=== PATIENT | female | born 1990 | race Caucasian/White ===

== ENCOUNTER → 2017-08-03 | Outpatient (REF) | payer OTHER ==
[~2017-08-03] MED LIST: IBUP-1022 PO; PRENTAB20 PO; TYLE325T5 PO
== END ==
LOC: M LAB REF 15:20
PROVIDERS: ATTEND Physician Assistant
DX: J02.9 Acute pharyngitis, unspecified (principal)

== ENCOUNTER 2018-01-16 10:14 | Emergency (ER) | payer OTHER ==
[2018-01-16 12:39] LABS: KETONE, URINE AUTO RFX 2+ mg/dL (NEGATIVE); MUCUS, URINE RFX SMALL (NEGATIVE); NITRITE, URINE AUTO RFX NEGATIVE (NEGATIVE); RBC, URINE AUTO RFX 4 /HPF (0-3); SPECIFIC GRAVITY UR AUTO RFX 1.027 (1.002-1.035); SQUAM EPITHELIAL CELL UR AURFX 3 /HPF (0-6); WBC, URINE AUTO RFX 7 /HPF (0-3)
[2018-01-16 12:40] LABS: LEUKOCYTE ESTERASE UR AUTO RFX TRACE (NEGATIVE)
[2018-01-16 12:41] LABS: BASO # 0.1 10^3/uL (0.0-0.2); BASO % 1.1 % (0.0-1.0); EOS % 0.9 % (0.0-3.0); HEMATOCRIT 42.5 % (36.0-47.0); HEMOGLOBIN 14.3 g/dl (12.0-16.0); IMMATURE GRANULOCYTE % 0.2 % (0-3.0); LYMPH % 44.3 % (24.0-44.0); MEAN CORPUSCULAR HEMOGLOBIN 28.9 pg (27.0-33.0); MEAN CORPUSCULAR HGB CONC 33.6 g/dl (32.0-36.5); MEAN CORPUSCULAR VOLUME 85.9 fl (80.0-96.0); MONO # 0.6 10^3/uL (0.0-0.8); MONO % 12.8 % (0.0-5.0); NEUTROPHILS # 1.9 10^3/uL (1.8-7.7); NEUTROPHILS % 40.7 % (36.0-66.0); PLATELET COUNT, AUTOMATED 311 10^3/uL (150-450); RED BLOOD COUNT 4.95 10^6/uL (4.00-5.40); RED CELL DISTRIBUTION WIDTH 13.2 % (11.5-14.5); WHITE BLOOD COUNT 4.6 10^3/uL (4.0-10.0)
[2018-01-16] MEDS: ONDANSETRON 4MG/2ML VIAL (J2405) IV (13:45)
[2018-01-16] MEDS: MORPHINE 4 MG/ML 1ML VIAL (J2270) IV (13:45)
[2018-01-16] MEDS: NS 1,000 ML IV (13:45)
[2018-01-16] MEDS: diphenhydrAMINE INJ 50MG/ML VIAL (J1200) IV (13:51)
[2018-01-16 14:12] LABS: ALBUMIN 3.2 GM/DL (3.2-5.2); ALBUMIN/GLOBULIN RATIO 0.78 (1.00-1.93); ALKALINE PHOSPHATASE 66 U/L (45-117); ALT/SGPT 13 U/L (12-78); ANION GAP 12 MEQ/L (8-16); AST/SGOT 23 U/L (7-37); BILIRUBIN,DIRECT < 0.1 MG/DL (0.0-0.2); BILIRUBIN,TOTAL 0.3 MG/DL (0.2-1.0); BLOOD UREA NITROGEN 14 MG/DL (7-18); CALCIUM LEVEL 8.7 MG/DL (8.5-10.1); CARBON DIOXIDE LEVEL 20 MEQ/L (21-32); CHLORIDE LEVEL 106 MEQ/L (98-107); CREATININE FOR GFR 0.61 MG/DL (0.55-1.30); GLOMERULAR FILTRATION RATE > 60.0 (>60); GLUCOSE, FASTING 53 MG/DL (70-100); LIPASE 74 U/L (73-393); POTASSIUM SERUM 4.5 MEQ/L (3.5-5.1); SODIUM LEVEL 138 MEQ/L (136-145); TOTAL PROTEIN 7.3 GM/DL (6.4-8.2)
[2018-01-16] MEDS ORDERED: ISOVUE-370 76% 100ML VIAL (Q9967) As Ordered (14:15)
[2018-01-16] MEDS: methylPREDNISolone INJ 125 MG/2 ML VIAL (J2930) IV (15:27)
== END 2018-01-16 15:58 | disposition home or self-care (01) ==
LOC: M ED 10:14
DX: K50.80 Crohn's disease of both small and large intestine without complications (principal); T83.32XA Displacement of intrauterine contraceptive device, initial encounter; Z87.891 Personal history of nicotine dependence; Z88.5 Allergy status to narcotic agent
CPT/HCPCS: J2270

== ENCOUNTER 2018-02-19 08:48 | Day surgery (SDC) | payer OTHER ==
[2018-02-19] MEDS: NS 1,000 ML IV (09:04)
[2018-02-19] MEDS ORDERED: PROPOFOL 200 MG/20 ML VIAL As Ordered (09:06)
== END 2018-02-19 10:25 | disposition home or self-care (01) ==
LOC: M OPP 08:48
DX: R93.3 Abnormal findings on diagnostic imaging of other parts of digestive tract (principal); K50.10 Crohn's disease of large intestine without complications; K63.89 Other specified diseases of intestine; K63.3 Ulcer of intestine; K64.8 Other hemorrhoids; Z88.5 Allergy status to narcotic agent; Z80.9 Family history of malignant neoplasm, unspecified
CPT/HCPCS: 45380

== ENCOUNTER 2018-03-14 11:32 | Day surgery (SDC) | payer OTHER ==
[~2018-03-14 11:32] MED LIST changes: -IBUP-1022 PO; +LIDOCAINE 2% INJ 100 MG/5 ML SDV (FOR ANES.) As Ordered; +MIDAZOLAM INJ 2 MG/2 ML VIAL (J2250) As Ordered; +ONDANSETRON 4MG/2ML VIAL (J2405) As Ordered; -PRENTAB20 PO; +PROPOFOL 200 MG/20 ML VIAL As Ordered; +ROCURONIUM BROMIDE 50 MG/5 ML VIAL As Ordered; +SUCCINYLCHOLINE 100 MG/5 ML SYRINGE (J0330) As Ordered; -TYLE325T5 PO; +dexameTHASONE 4 MG/ML 1ML VIAL (J1100) As Ordered; +fentaNYL 100 MCG/2 ML INJECTION (J3010) As Ordered
[2018-03-14] MEDS: LR 1,000 ML IV (11:53)
[2018-03-14 12:03] LABS: HEMATOCRIT 41.3 % (36.0-47.0); HEMOGLOBIN 13.6 g/dl (12.0-15.5)
[2018-03-14 12:09] LABS: CONTROL LINE UCG INT CTR LINE PRESENT; URINE PREG TEST NEGATIVE (NEGATIVE)
[2018-03-14] MEDS ORDERED: dexameTHASONE 4 MG/ML 1ML VIAL (J1100) As Ordered (12:24)
[2018-03-14] MEDS ORDERED: diphenhydrAMINE INJ 50MG/ML VIAL (J1200) As Ordered (12:25)
[2018-03-14] MEDS ORDERED: KETOROLAC 60 MG/2 ML VIAL (J1885) As Ordered (12:54)
[2018-03-14] MEDS: BUPIVACAINE HCL 0.25% 30 ML VIAL As Ordered (12:59)
[2018-03-14] MEDS ORDERED: ONDANSETRON 4MG/2ML VIAL (J2405) IV (13:45)
[2018-03-14] MEDS ORDERED: PERCOCET 5MG/325MG TAB PO ×2 (13:45)
[2018-03-14] MEDS ORDERED: LR 1,000 ML IV ×2 (13:45)
[2018-03-14] MEDS: fentaNYL 100 MCG/2 ML INJECTION (J3010) IV ×4 (14:00→14:15)
[2018-03-14] MEDS: PERCOCET 5MG/325MG TAB PO (14:05)
== END 2018-03-14 15:05 | disposition home or self-care (01) ==
LOC: M SDC 11:32
DX: Z30.2 Encounter for sterilization (principal); Z97.5 Presence of (intrauterine) contraceptive device; K50.90 Crohn's disease, unspecified, without complications; Z88.5 Allergy status to narcotic agent; Z79.899 Other long term (current) drug therapy
CPT/HCPCS: 58671

== ENCOUNTER → 2018-08-02 | Outpatient (CLI) | payer OTHER ==
[2018-08-02 17:47] LABS: BASO % 0.5 % (0.0-1.0); EOS # 0.2 10^3/uL (0.0-0.50); EOS % 2.7 % (0.0-3.0); HEMATOCRIT 42.3 % (36.0-47.0); IMMATURE GRANULOCYTE % 0.3 % (0-3.0); LYMPH # 3.4 10^3/uL (1.5-6.5); LYMPH % 38.3 % (24.0-44.0); MEAN CORPUSCULAR HGB CONC 33.1 g/dl (32.0-36.5); MEAN CORPUSCULAR VOLUME 90.6 fl (80.0-96.0); MONO # 0.6 10^3/uL (0.0-0.8); MONO % 6.5 % (0.0-5.0); NEUTROPHILS # 4.5 10^3/uL (1.8-7.7); NEUTROPHILS % 51.7 % (36.0-66.0); PLATELET COUNT, AUTOMATED 280 10^3/uL (150-450); RED BLOOD COUNT 4.67 10^6/uL (4.00-5.40); RED CELL DISTRIBUTION WIDTH 13.3 % (11.5-14.5); WHITE BLOOD COUNT 8.8 10^3/uL (4.0-10.0)
[2018-08-02 18:02] LABS: ALBUMIN 3.9 GM/DL (3.2-5.2); ALBUMIN/GLOBULIN RATIO 1.26 (1.00-1.93); ALKALINE PHOSPHATASE 73 U/L (45-117); ALT/SGPT 17 U/L (12-78); AST/SGOT 12 U/L (7-37); BILIRUBIN,DIRECT < 0.1 MG/DL (0.0-0.2); BILIRUBIN,TOTAL 0.2 MG/DL (0.2-1.0); C REACTIVE PROTEIN QUANTITATIV < 0.30 MG/DL (0.00-0.30)
[2018-08-02 19:32] LABS: ERYTHROCYTE SEDIMENTATION RATE 6 mm/hr (0-20)
[2018-08-03 11:25] LABS: HEPATITIS B SURFACE ANTIBODY NEGATIVE (POSITIVE)
[2018-08-03 11:37] LABS: HEPATITIS B SURFACE ANTIGEN NEGATIVE (NEGATIVE)
[2018-08-07 00:21] LABS: ANCA-ATYPICAL <1:20 titer (Neg:<1:20); ANTI-SACCHAROMYCES CEREV. IgA 131.6 Units (0.0-24.9); ANTI-SACCHAROMYCES CEREV. IgG 47.5 Units (0.0-24.9); CYTOPLASMIC NEUTROP AB ANCA-C <1:20 titer (Neg:<1:20); HEPATITIS B CORE ANTIBODY IGG Negative (Negative); PERINUCLEAR AB ANCA-P <1:20 titer (Neg:<1:20)
[2018-08-09 08:33] LABS: IBDSER1 SEE SEPARATE REPORT
[2018-08-17 08:40] LABS: CROHN1 SEE SEPARATE REPORT
== END ==
LOC: M WUC 12:20
DX: K50.80 Crohn's disease of both small and large intestine without complications (principal)
CPT/HCPCS: 80076

== ENCOUNTER → 2018-09-01 | Outpatient (CLI) | payer OTHER ==
[2018-09-01 18:04] LABS: BASO # 0.1 10^3/uL (0.0-0.2); BASO % 0.4 % (0.0-1.0); EOS # 0.1 10^3/uL (0.0-0.50); EOS % 1.1 % (0.0-3.0); HEMATOCRIT 42.1 % (36.0-47.0); HEMOGLOBIN 13.8 g/dl (12.0-15.5); IMMATURE GRANULOCYTE % 1.1 % (0-3.0); LYMPH # 2.1 10^3/uL (1.5-6.5); MEAN CORPUSCULAR HEMOGLOBIN 30.5 pg (27.0-33.0); MEAN CORPUSCULAR HGB CONC 32.8 g/dl (32.0-36.5); MEAN CORPUSCULAR VOLUME 93.1 fl (80.0-96.0); MONO # 0.6 10^3/uL (0.0-0.8); MONO % 4.4 % (0.0-5.0); NEUTROPHILS # 10.1 10^3/uL (1.8-7.7); PLATELET COUNT, AUTOMATED 310 10^3/uL (150-450); RED BLOOD COUNT 4.52 10^6/uL (4.00-5.40); RED CELL DISTRIBUTION WIDTH 13.2 % (11.5-14.5); WHITE BLOOD COUNT 13.1 10^3/uL (4.0-10.0)
[2018-09-01 18:13] LABS: ALBUMIN 3.8 GM/DL (3.2-5.2); ALBUMIN/GLOBULIN RATIO 1.23 (1.00-1.93); ALKALINE PHOSPHATASE 57 U/L (45-117); ALT/SGPT 22 U/L (12-78); AST/SGOT 12 U/L (7-37); BILIRUBIN,DIRECT 0.1 MG/DL (0.0-0.2); BILIRUBIN,TOTAL 0.5 MG/DL (0.2-1.0); BLOOD UREA NITROGEN 13 MG/DL (7-18); CREATININE FOR GFR 0.75 MG/DL (0.55-1.30); GLOMERULAR FILTRATION RATE > 60.0 (>60); TOTAL PROTEIN 6.9 GM/DL (6.4-8.2)
== END ==
LOC: M WUC 10:06
DX: K63.3 Ulcer of intestine (principal); K50.10 Crohn's disease of large intestine without complications
CPT/HCPCS: 82565

== ENCOUNTER → 2018-11-15 | Outpatient (CLI) | payer OTHER ==
[~2018-11-15] MED LIST changes: +CIPR-249 PO; +IBUP-1022 PO; -LIDOCAINE 2% INJ 100 MG/5 ML SDV (FOR ANES.) As Ordered; -MIDAZOLAM INJ 2 MG/2 ML VIAL (J2250) As Ordered; -ONDANSETRON 4MG/2ML VIAL (J2405) As Ordered; +OXYC1TAB23 PO; +PENT500C PO; +PRED20TA PO; +PRENTAB20 PO; -PROPOFOL 200 MG/20 ML VIAL As Ordered; -ROCURONIUM BROMIDE 50 MG/5 ML VIAL As Ordered; -SUCCINYLCHOLINE 100 MG/5 ML SYRINGE (J0330) As Ordered; +TYLE325T5 PO; +ZOFR4TAB14 PO; -dexameTHASONE 4 MG/ML 1ML VIAL (J1100) As Ordered; -fentaNYL 100 MCG/2 ML INJECTION (J3010) As Ordered
[2018-11-15 20:31] LABS: BASO % 0.5 % (0.0-1.0); EOS # 0.3 10^3/uL (0.0-0.50); EOS % 3.3 % (0.0-3.0); HEMATOCRIT 40.7 % (36.0-47.0); HEMOGLOBIN 13.8 g/dl (12.0-15.5); LYMPH # 2.5 10^3/uL (1.5-6.5); LYMPH % 32.6 % (24.0-44.0); MEAN CORPUSCULAR HGB CONC 33.9 g/dl (32.0-36.5); MEAN CORPUSCULAR VOLUME 94.4 fl (80.0-96.0); MONO # 0.5 10^3/uL (0.0-0.8); MONO % 6.5 % (0.0-5.0); NEUTROPHILS # 4.3 10^3/uL (1.8-7.7); NEUTROPHILS % 56.7 % (36.0-66.0); PLATELET COUNT, AUTOMATED 297 10^3/uL (150-450); RED BLOOD COUNT 4.31 10^6/uL (4.00-5.40); WHITE BLOOD COUNT 7.6 10^3/uL (4.0-10.0)
[2018-11-15 20:38] LABS: ALBUMIN 3.7 GM/DL (3.2-5.2); ALT/SGPT 19 U/L (12-78); BILIRUBIN,DIRECT < 0.1 MG/DL (0.0-0.2); BILIRUBIN,TOTAL 0.2 MG/DL (0.2-1.0); BLOOD UREA NITROGEN 12 MG/DL (7-18); CREATININE FOR GFR 0.83 MG/DL (0.55-1.30); GLOMERULAR FILTRATION RATE > 60.0 (>60); TOTAL PROTEIN 6.9 GM/DL (6.4-8.2)
[2018-11-21 07:52] LABS: 6-TGN 116 (230-400)
[2018-11-21 07:53] LABS: 6MMPN <802 (<5700)
== END ==
LOC: M LRY 16:16
PROVIDERS: ATTEND Internal Medicine Gastroenterology
DX: K63.3 Ulcer of intestine (principal); K50.10 Crohn's disease of large intestine without complications

== ENCOUNTER → 2018-12-20 | Outpatient (CLI) | payer OTHER ==
[2018-12-20 20:33] LABS: BASO % 0.6 % (0.0-1.0); EOS # 0.2 10^3/uL (0.0-0.50); EOS % 2.4 % (0.0-3.0); HEMATOCRIT 41.6 % (36.0-47.0); HEMOGLOBIN 13.8 g/dl (12.0-15.5); LYMPH # 2.3 10^3/uL (1.5-6.5); MEAN CORPUSCULAR HEMOGLOBIN 31.9 pg (27.0-33.0); MEAN CORPUSCULAR HGB CONC 33.2 g/dl (32.0-36.5); MEAN CORPUSCULAR VOLUME 96.1 fl (80.0-96.0); MONO # 0.4 10^3/uL (0.0-0.8); MONO % 5.1 % (0.0-5.0); NEUTROPHILS # 4.1 10^3/uL (1.8-7.7); NEUTROPHILS % 58.6 % (36.0-66.0); PLATELET COUNT, AUTOMATED 285 10^3/uL (150-450); RED BLOOD COUNT 4.33 10^6/uL (4.00-5.40)
[2018-12-20 21:07] LABS: ALBUMIN 4.1 GM/DL (3.2-5.2); BILIRUBIN,DIRECT 0.1 MG/DL (0.0-0.2); BILIRUBIN,TOTAL 0.3 MG/DL (0.2-1.0); TOTAL PROTEIN 7.3 GM/DL (6.4-8.2)
[2018-12-20 21:20] LABS: ERYTHROCYTE SEDIMENTATION RATE 6 mm/hr (0-20)
[2018-12-26 09:27] LABS: 6-TGN 246 (230-400)
[2018-12-26 09:28] LABS: 6MMPN 875 (<5700)
== END ==
LOC: M LRY 16:08
PROVIDERS: ATTEND Internal Medicine Gastroenterology
DX: K63.3 Ulcer of intestine (principal)

== ENCOUNTER → 2019-02-20 | Outpatient (CLI) | payer OTHER ==
[2019-02-20 21:34] LABS: ALT/SGPT 19 U/L (12-78); BILIRUBIN,DIRECT < 0.1 MG/DL (0.0-0.2); BILIRUBIN,TOTAL 0.3 MG/DL (0.2-1.0)
[2019-02-20 21:35] LABS: BASO # 0.1 10^3/uL (0.0-0.2); BASO % 0.7 % (0.0-1.0); EOS # 0.3 10^3/uL (0.0-0.50); EOS % 3.6 % (0.0-3.0); HEMATOCRIT 41.6 % (36.0-47.0); HEMOGLOBIN 13.6 g/dl (12.0-15.5); LYMPH # 2.9 10^3/uL (1.5-6.5); LYMPH % 41.9 % (24.0-44.0); MEAN CORPUSCULAR HEMOGLOBIN 31.2 pg (27.0-33.0); MEAN CORPUSCULAR HGB CONC 32.7 g/dl (32.0-36.5); MEAN CORPUSCULAR VOLUME 95.4 fl (80.0-96.0); MONO # 0.5 10^3/uL (0.0-0.8); MONO % 6.5 % (0.0-5.0); NEUTROPHILS # 3.2 10^3/uL (1.8-7.7); PLATELET COUNT, AUTOMATED 280 10^3/uL (150-450); RED BLOOD COUNT 4.36 10^6/uL (4.00-5.40); WHITE BLOOD COUNT 6.9 10^3/uL (4.0-10.0)
[2019-02-20 22:27] LABS: ERYTHROCYTE SEDIMENTATION RATE 5 mm/hr (0-20)
== END ==
LOC: M LRY 16:59
PROVIDERS: ATTEND Internal Medicine Gastroenterology
DX: K50.80 Crohn's disease of both small and large intestine without complications (principal)

== ENCOUNTER 2019-04-01 06:39 | Day surgery (SDC) | payer OTHER ==
[~2019-04-01] VITALS: Ht 170.2 cm; Wt 78.9 kg
[~2019-04-01 06:39] MED LIST changes: +AZAT50TA2 PO; +NS 1,000 ML IV ONE
[2019-04-01] MEDS ORDERED: PROPOFOL 200 MG/20 ML VIAL As Ordered ONE (07:09)
[2019-04-01] MEDS ORDERED: LIDOCAINE 2% INJ 100 MG/5 ML SDV (FOR ANES.) As Ordered ONE (07:10)
--- NOTE | 2019-04-01 08:05 | ROOR ---
Patient Name: Arianna Gaston Procedure Date: 04/01/2019 7:34 AM Date of : 1990 Age: 28 Room: [facility] Gender: Female Note Status: Finalized Procedure: Colonoscopy Indications: High risk colon cancer surveillance: Crohn's small and large intestine, Incidental - Disease activity assessment of Crohn's disease of the small bowel and colon Providers: Jason Moreland MD Referring MD: 1. No Referring Physician 1. No Referring Physician, Admin. Requesting Provider: Medicines: Monitored Anesthesia Care Complications: No immediate complications. Procedure: Pre-Anesthesia Assessment: - Prior to the procedure, a History and Physical was performed, and patient medications and allergies were reviewed. The patient is competent. The risks and benefits of the procedure and the sedation options and risks were discussed with the patient. All questions were answered and informed consent was obtained. Patient identification and proposed procedure were verified by the physician, the nurse and the anesthesiologist in the procedure room. Mental Status Examination: alert and oriented. Airway Examination: normal oropharyngeal airway and neck mobility. Respiratory Examination: clear to auscultation. CV Examination: normal. Prophylactic Antibiotics: The patient does not require prophylactic antibiotics. Prior Anticoagulants: The patient has taken no previous anticoagulant or antiplatelet agents. ASA Grade Assessment: II - A patient with mild systemic disease. After reviewing the risks and benefits, the patient was deemed in satisfactory condition to undergo the procedure. The anesthesia plan was to use monitored anesthesia care (MAC). Immediately prior to administration of medications, the patient was re-assessed for adequacy to receive sedatives. The heart rate, respiratory rate, oxygen saturations, blood pressure, adequacy of pulmonary ventilation, and response to care were monitored throughout the procedure. The physical status of the patient was re-assessed after the procedure. The Colonoscope was introduced through the anus and advanced to the terminal ileum, with identification of the appendiceal orifice and IC valve. The colonoscopy was performed without difficulty. The patient tolerated the procedure well. The quality of the bowel preparation was good. The terminal ileum, ileocecal valve, appendiceal orifice, and rectum were photographed. Scope insertion time was 2 minutes. Scope withdrawal time was 8 minutes. The total duration of the procedure was 10 minutes. Findings: The perianal and digital rectal examinations were normal. Patchy inflammation, graded as Rutgeerts Score i1 (five or fewer aphthous lesions) and characterized by erosions and scarring was found in the terminal ileum. Biopsies were taken with a cold forceps for histology. Verification of patient identification for the specimen was done by the physician and nurse using the patient's name, date and medical record number. Estimated blood loss was minimal. Normal mucosa was found in the entire colon. Biopsies for histology were taken with a cold forceps from the right colon, left colon and rectosigmoid colon for evaluation of microscopic colitis. The retroflexed view of the distal rectum and anal verge was normal and showed no anal or rectal abnormalities. Impression: - Ileitis Biopsied. - Normal mucosa in the entire examined colon. Biopsied. Recommendation: - Patient has a contact number available for emergencies. The signs and symptoms of potential delayed complications were discussed with the patient. Return to normal activities tomorrow. Written discharge instructions were provided to the patient. - Resume previous diet. - Continue present medications. - Await pathology results. - Repeat colonoscopy in 10 years to assess disease activity and depending on clinical status. - Repeat colonoscopy at age 52 for screening purposes. - Return to primary care physician. Jason Moreland MD Jason Moreland MD 04/01/2019 8:05:22 AM Electronically signed by Jason Moreland MD Number of Addenda: 0 Note Initiated On: 04/01/2019 7:34 AM Estimated Blood Loss: Estimated blood loss: none.
[2019-04-01 08:21] VITALS: BP 127/93
== END 2019-04-01 08:22 | disposition home or self-care (01) ==
LOC: M OPP 06:39
PROVIDERS: ATTEND Internal Medicine Gastroenterology
DX: K50.80 Crohn's disease of both small and large intestine without complications (principal); K52.9 Noninfective gastroenteritis and colitis, unspecified

== ENCOUNTER → 2019-11-14 | Outpatient (CLI) | payer OTHER ==
[~2019-11-14] MED LIST changes: +METHACHOLINE KIT (J7674) INH ONE; -NS 1,000 ML IV ONE
--- NOTE | 2019-11-14 09:01 | PFTRPT ---
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 Review Status: Not Reviewed Pre-Bronch Post-Bronch Pred Actual %Pred Actual %Chng SPIROMETRY FVC (L) 4.03 4.46 110 4.26 -4 FEV1 (L) 3.43 3.59 104 3.42 -4 FEV1/FVC (%) 85 81 94 80 FEF 25% (L/sec) 5.98 6.74 112 6.14 -8 FEF 50% (L/sec) 4.59 4.36 94 3.87 -11 FEF 75% (L/sec) 1.97 1.49 75 1.12 -24 FEF 25-75% (L/sec) 3.67 3.48 94 2.92 -16 FEF Max (L/sec) 7.28 7.52 103 7.12 -5 FIVC (L) 4.10 3.46 -15 FIF 50% (L/sec) 4.30 3.39 78 1.71 -49 FIF Max (L/sec) 3.67 3.16 -13 Expiratory Time (sec) 6.58 6.77 2 Back Extrap Vol (L) 0.10 0.10 -5 Time To FEFmax (sec) 0.074 0.080 8
== END ==
LOC: M CARPUL 07:56
PROVIDERS: ATTEND Nurse Practitioner Adult Health
DX: R06.02 Shortness of breath (principal)
CPT/HCPCS: 94070; J7674

== ENCOUNTER → 2020-04-24 | Outpatient (CLI) | payer OTHER ==
[~2020-04-24] MED LIST changes: -METHACHOLINE KIT (J7674) INH ONE
[2020-04-24 14:07] LABS: BASO % 0.5 % (0.0-1.0); EOS # 0.2 10^3/uL (0.0-0.5); EOS % 3.7 % (0.0-3.0); HEMATOCRIT 41.4 % (36.0-47.0); HEMOGLOBIN 13.7 g/dl (12.0-15.5); LYMPH # 2.1 10^3/uL (1.5-5.0); LYMPH % 31.9 % (24.0-44.0); MEAN CORPUSCULAR HEMOGLOBIN 30.3 pg (27.0-33.0); MEAN CORPUSCULAR HGB CONC 33.1 g/dl (32.0-36.5); MEAN CORPUSCULAR VOLUME 91.6 fl (80.0-96.0); MONO # 0.4 10^3/uL (0.0-0.8); MONO % 6.6 % (0.0-5.0); NEUTROPHILS # 3.7 10^3/uL (1.5-8.5); PLATELET COUNT, AUTOMATED 290 10^3/uL (150-450); RED BLOOD COUNT 4.52 10^6/uL (4.00-5.40); WHITE BLOOD COUNT 6.5 10^3/uL (4.0-10.0)
[2020-04-24 14:08] LABS: ALBUMIN 3.8 GM/DL (3.2-5.2); ALT/SGPT 16 U/L (12-78); BILIRUBIN,DIRECT 0.1 MG/DL (0.0-0.2); BILIRUBIN,TOTAL 0.7 MG/DL (0.2-1.0); C REACTIVE PROTEIN QUANTITATIV < 0.30 MG/DL (0.00-0.30); TOTAL PROTEIN 7.2 GM/DL (6.4-8.2)
[2020-04-24 14:25] LABS: ERYTHROCYTE SEDIMENTATION RATE 8 mm/hr (0-20)
[2020-05-07 07:25] LABS: 6-TGN 28 (230-400); 6MMPN <261 (<5700)
== END ==
LOC: M LRY 09:07
PROVIDERS: ATTEND Internal Medicine Gastroenterology
DX: K50.80 Crohn's disease of both small and large intestine without complications (principal)

== ENCOUNTER → 2020-05-11 | Outpatient (CLI) | payer OTHER ==
[~2020-05-11] MED LIST changes: +ADVA115A INH; +CETI-24 PO; +E-Z-GAS II EFFERVESCENT PACKET (SODIUM BICARB./CITRIC ACID/SIMETHICONE) As Ordered ONE; +E-Z-HD 98% w/w 340GM SUSP BTL As Ordered ONE; +E-Z-PAQUE 96% w/w SUSP 176GM BTL As Ordered ONE; +VENTAER INH
--- NOTE | 2020-05-11 18:43 | REP ---
Upper GI Air Contrast with SBFT The procedure was performed by TRISTON Garcia, under the the direct supervision of Dr. Benoit. The images were reviewed with Dr. Benoit. The box car loader film shows no organomegaly or pathological masses. The intestinal gas pattern appears normal. There are bilateral tubal ligation bands in the pelvis. Liquid barium and gas producing crystals were given in the erect position as well as liquid barium in the prone position in order to perform a double contrast upper GI examination. The oral and pharyngeal stages of deglutition were unremarkable. Esophageal transport is efficient and there is no esophagitis, stricture, or mucosal ring noted. There is no hiatal hernia. Gastroesophageal reflux was not visualized during the exam. The stomach parker are normally outlined. The rugal folds are smooth and regular. There is no gastritis, neoplasm, or ulcer disease noted. The duodenal parker are normally outlined. The mucosal folds are smooth and regular. There is no duodenitis, peptic ulcer disease, or neoplasm noted. The visualized portion of the proximal small bowel appears normal in course and caliber. The barium column was followed through the small bowel to the level of the terminal ileum. Small bowel transit time was approximately 40 minutes. During fluoroscopy gentle palpation shows all loops are freely mobile and pliable. There are no fixed or angulated loops. The small bowel mucosal pattern is normal in course and caliber. There is no transition to set suggest a partial small-bowel obstruction. Spot filming of the terminal ileum shows it to be unremarkable. Impression: 1. Small bowel transit time of approximately 40 minutes, otherwise unremarkable upper GI and small-bowel follow-through. 0.9 minutes of fluoroscopy time was utilized for this procedure. Some fluoroscopic images are performed with last image hold technology. These images require no additional radiation. Reviewed by TRISTON Ponce 05/11/2020 05:22 P Electronically Signed by Chad Benoit MD 05/11/2020 06:34 P
== END ==
LOC: M RAD 07:38
PROVIDERS: ATTEND Internal Medicine Gastroenterology
DX: K50.80 Crohn's disease of both small and large intestine without complications (principal)

== ENCOUNTER 2020-07-06 13:43 | Outpatient (CLI) | payer OTHER ==
[~2020-07-06] VITALS: Ht 172.7 cm; Wt 83.4 kg
[~2020-07-06 13:43] MED LIST changes: -ADVA115A INH; -CETI-24 PO; -E-Z-GAS II EFFERVESCENT PACKET (SODIUM BICARB./CITRIC ACID/SIMETHICONE) As Ordered ONE; -E-Z-HD 98% w/w 340GM SUSP BTL As Ordered ONE; -E-Z-PAQUE 96% w/w SUSP 176GM BTL As Ordered ONE; -VENTAER INH
[2020-07-06 13:59] VITALS: BP 130/80
[2020-07-06] MEDS ORDERED: VEDOLIZUMAB 300 MG in NS 250 ML IV ONE (14:00)
[2020-07-06] MEDS ORDERED: CETI-24 PO (14:23)
[2020-07-06 15:05] VITALS: BP 134/77
== END 2020-07-06 15:05 | disposition home or self-care (01) ==
LOC: M INFU 13:43
PROVIDERS: ATTEND Internal Medicine Gastroenterology
DX: K50.90 Crohn's disease, unspecified, without complications (principal)
CPT/HCPCS: 96365; J3380

== ENCOUNTER 2020-07-20 13:44 | Outpatient (CLI) | payer OTHER ==
[~2020-07-20] VITALS: Ht 172.7 cm; Wt 83.4 kg
[~2020-07-20 13:44] MED LIST changes: +CETI-24 PO
[2020-07-20 13:45] VITALS: BP 127/75
[2020-07-20] MEDS ORDERED: VEDOLIZUMAB 300 MG in NS 250 ML IV ONE (14:00)
[2020-07-20] MEDS ORDERED: ADVA115A INH (14:30)
[2020-07-20] MEDS ORDERED: VENTAER INH (14:31)
[2020-07-20 14:50] VITALS: BP 110/74
== END 2020-07-20 14:50 | disposition home or self-care (01) ==
LOC: M INFU 13:44
PROVIDERS: ATTEND Internal Medicine Gastroenterology
DX: K50.90 Crohn's disease, unspecified, without complications (principal)
CPT/HCPCS: 96365; J3380

== ENCOUNTER 2020-08-17 13:56 | Outpatient (CLI) | payer OTHER ==
[~2020-08-17] VITALS: Ht 162.6 cm; Wt 80.5 kg
[~2020-08-17 13:56] MED LIST changes: +ADVA115A INH; +VENTAER INH
[2020-08-17] MEDS ORDERED: VEDOLIZUMAB 300 MG in NS 250 ML IV ONE (14:00)
[2020-08-17 14:10] VITALS: BP 134/63
[2020-08-17 15:24] VITALS: BP 122/83
== END 2020-08-17 15:25 | disposition home or self-care (01) ==
LOC: M INFU 13:56
PROVIDERS: ATTEND Internal Medicine Gastroenterology
DX: K50.90 Crohn's disease, unspecified, without complications (principal)
CPT/HCPCS: 96365; J3380

== ENCOUNTER 2020-10-12 13:48 | Outpatient (CLI) | payer OTHER ==
[~2020-10-12] VITALS: Ht 193 cm; Wt 80.5 kg
[2020-10-12] MEDS ORDERED: VEDOLIZUMAB 300 MG in NS 250 ML IV ONE (14:00)
[2020-10-12 14:01] VITALS: BP 140/87
[2020-10-12 15:16] VITALS: BP 114/70
== END 2020-10-12 15:18 | disposition home or self-care (01) ==
LOC: M INFU 13:48
PROVIDERS: ATTEND Internal Medicine Gastroenterology
DX: K50.90 Crohn's disease, unspecified, without complications (principal)
CPT/HCPCS: 96365; J3380

== ENCOUNTER 2020-11-04 23:53 | Emergency (ER) | payer OTHER ==
[~2020-11-04] VITALS: Ht 170.2 cm; Wt 81.4 kg
--- OUTSIDE RECORDS SUMMARY | 2020-11-05 00:04 | CCD ---
Author Author [facility] Organization [facility] Address Unknown Phone Unavailable Care Team Providers Care Transfer Agent Name Role Phone CYDNEY PEDROZA MD Unavailable Unavailable CYDNEY PEDROZA MD Unavailable Unavailable CYDNEY PEDROZA MD Unavailable Unavailable CYDNEY PEDROZA MD Unavailable Unavailable CYDNEY PEDROZA MD Unavailable Unavailable CYDNEY PEDROZA MD Unavailable Unavailable CYDNEY PEDROZA MD Unavailable Unavailable CYDNEY PEDROZA MD Unavailable Unavailable CYDNEY PEDROZA MD Unavailable Unavailable CYDNEY PEDROZA MD Unavailable Unavailable CYDNEY PEDROZA MD Unavailable Unavailable CYDNEY PEDROZA MD Unavailable Unavailable CYDNEY PEDROZA MD Unavailable Unavailable CYDNEY PEDROZA MD Unavailable Unavailable CYDNEY PEDROZA MD Unavailable Unavailable CYDNEY PEDROZA MD Unavailable Unavailable CYDNEY PEDROZA MD Unavailable Unavailable CYDNEY PDEROZA MD Unavailable Unavailable CYDNEY PEDROZA MD Unavailable Unavailable CYDNEY PEDROZA MD Unavailable Unavailable CYDNEY PEDROZA MD Unavailable Unavailable CYDNEY PEDROZA MD Unavailable Unavailable CYDNEY PEDROZA MD Unavailable Unavailable CYDNEY PEDROZA MD Unavailable Unavailable CYDNEY PEDROZA MD Unavailable Unavailable CYDNEY PEDROZA MD Unavailable Unavailable CYDNEY PEDROZA MD Unavailable Unavailable CYDNEY PEDROZA MD Unavailable Unavailable CYDNEY PEDROZA MD Unavailable Unavailable CYDNEY PEDROZA MD Unavailable Unavailable CYDNEY PEDROZA MD Unavailable Unavailable CYDNEY PEDROZA MD Unavailable Unavailable CYDNEY PEDROZA MD Unavailable Unavailable CYDNEY PEDROZA MD Unavailable Unavailable CYDNEY PEDROZA MD Unavailable Unavailable CYDNEY PEDROZA MD Unavailable Unavailable CYDNEY PEDROZA MD Unavailable Unavailable CYDNEY PEDROZA MD Unavailable Unavailable CYDNEY PEDROZA MD Unavailable Unavailable CYDNEY PEDROZA MD Unavailable Unavailable Zackery, Radha Sasha ANP-BC Unavailable Unavailable Zackery, Radha Sasha ANP-BC Unavailable Unavailable Zackery, Radha Sasha ANP-BC Unavailable Unavailable Zackery, Radha Sasha ANP-BC Unavailable Unavailable Zackery, Radha Sasha ANP-BC Unavailable Unavailable Zackery, Radha Sasha ANP-BC Unavailable Unavailable Zackery, Radha Sasha ANP-BC Unavailable Unavailable Zackery, Radha Sasha ANP-BC Unavailable Unavailable Zackery, Radha Sasha ANP-BC Unavailable Unavailable Zackery, Radha Sasha ANP-BC Unavailable Unavailable Zackery, Radha Sasha ANP-BC Unavailable Unavailable Zackery, Radha Sasha ANP-BC Unavailable Unavailable Zackery, Radha Sasha ANP-BC Unavailable Unavailable Zackery, Radha Sasha ANP-BC Unavailable Unavailable Zackery, Radha Sasha ANP-BC Unavailable Unavailable Zackery, Radha Sasha ANP-BC Unavailable Unavailable Zackery, Radha Sasha ANP-BC Unavailable Unavailable Zackery, Radha Sasha ANP-BC Unavailable Unavailable Zackery, Radha Sasha ANP-BC Unavailable Unavailable Zackery, Radha Sasha ANP-BC Unavailable Unavailable Zackery, Radha Sasha ANP-BC Unavailable Unavailable Zackery, Radha Sasha ANP-BC Unavailable Unavailable Zackery, Radha Sasha ANP-BC Unavailable Unavailable Zackery, Radha Sasha ANP-BC Unavailable Unavailable Zackery, Radha Sasha ANP-BC Unavailable Unavailable Zackery, Radha Sasha ANP-BC Unavailable Unavailable Zackery, Radha Sasha ANP-BC Unavailable Unavailable Zackery, Radha Sasha ANP-BC Unavailable Unavailable Zackery, Radha Sasha ANP-BC Unavailable Unavailable Zackery, Radha Sasha ANP-BC Unavailable Unavailable Zackery, Radha Sasha ANP-BC Unavailable Unavailable Zackery, Radha Sasha ANP-BC Unavailable Unavailable Zackery, Rdaha Sasha ANP-BC Unavailable Unavailable Zackery, Radha Sasha ANP-BC Unavailable Unavailable Zackery, Radha Sasha ANP-BC Unavailable Unavailable Zackery, Radha Sasha ANP-BC Unavailable Unavailable Zackery, Radha Sasha ANP-BC Unavailable Unavailable Zackery, Radha Sasha ANP-BC Unavailable Unavailable Zackery, Radha Sasha ANP-BC Unavailable Unavailable Zackery, Radha Sasha ANP-BC Unavailable Unavailable Zackery, Radha Sasha ANP-BC Unavailable Unavailable Zackery, Radha Sasha ANP-BC Unavailable Unavailable Zackery, Radha Sasha ANP-BC Unavailable Unavailable Zackery, Radha Sasha ANP-BC Unavailable Unavailable Zackery, Radha Sasha ANP-BC Unavailable Unavailable Zackery, Radha Sasha ANP-BC Unavailable Unavailable Zackery, Radha Sasha ANP-BC Unavailable Unavailable Zackery, Radha Sasha ANP-BC Unavailable Unavailable Zackery, Radha Sasha ANP-BC Unavailable Unavailable Zackery, Radha Sasha ANP-BC Unavailable Unavailable Zackery, Radha Sasha ANP-BC Unavailable Unavailable Zackery, Radha Sasha ANP-BC Unavailable Unavailable Zackery, Radha Sasha ANP-BC Unavailable Unavailable Zackery, Radha Sasha ANP-BC Unavailable Unavailable Zackery, Radha Sasha ANP-BC Unavailable Unavailable Zackery, Radha Sasha ANP-BC Unavailable Unavailable Zackery, Radha Sasha ANP-BC Unavailable Unavailable Zackery, Radha Sasha ANP-BC Unavailable Unavailable Zackery, Radha Sasha ANP-BC Unavailable Unavailable Zackery, Radha Sasha ANP-BC Unavailable Unavailable Zackery, Radha Sasha ANP-BC Unavailable Unavailable Zackery, Radha Sasha ANP-BC Unavailable Unavailable Zackery, Radha Sasha ANP-BC Unavailable Unavailable Zackery, Radha Sasha ANP-BC Unavailable Unavailable Zackery, Radha Sasha ANP-BC Unavailable Unavailable Zackery, Radha Sasha ANP-BC Unavailable Unavailable Zackery, Radha Sasha ANP-BC Unavailable Unavailable Zackery, Radha Sasha ANP-BC Unavailable Unavailable Zackery, Radha Sasha ANP-BC Unavailable Unavailable Zackery, Radha Sasha ANP-BC Unavailable Unavailable Zackery, Radha Sasha ANP-BC Unavailable Unavailable Zackery, Radha Sasha ANP-BC Unavailable Unavailable Zackery, Radha Sasha ANP-BC Unavailable Unavailable Zackery, Radha Sasha ANP-BC Unavailable Unavailable Zackery, Radha Sasha ANP-BC Unavailable Unavailable Zackery, Radha Sasha ANP-BC Unavailable Unavailable Zackery, Radha Sasha ANP-BC Unavailable Unavailable Zackery, Radha Sasha ANP-BC Unavailable Unavailable Zackery, Radha Sasha ANP-BC Unavailable Unavailable Zackery, Radha Sasha ANP-BC Unavailable Unavailable Zackery, Radha Sasha ANP-BC Unavailable Unavailable Zackery, Radha Sasha ANP-BC Unavailable Unavailable Zackery, Radha Sasha ANP-BC Unavailable Unavailable Zackery, Radha Sasha ANP-BC Unavailable Unavailable Zackery, Radha Sasha ANP-BC Unavailable Unavailable Zackery, Radha Sasha ANP-BC Unavailable Unavailable Zackery, Radha Sasha ANP-BC Unavailable Unavailable Zackery, Radha Sasha ANP-BC Unavailable Unavailable Zackery, Radha Sasha ANP-BC Unavailable Unavailable Zackery, Radha Sasha ANP-BC Unavailable Unavailable Zackery, Radha Sasha ANP-BC Unavailable Unavailable Zackery, Radha Sasha ANP-BC Unavailable Unavailable Zackery, Radha Sasha ANP-BC Unavailable Unavailable Zackery, Radha Sasha ANP-BC Unavailable Unavailable Zackery, Radha Sasha ANP-BC Unavailable Unavailable Zackery, Radha Sasha ANP-BC Unavailable Unavailable Zackrey, Radha Sasha ANP-BC Unavailable Unavailable Zackery, Radha Sasha ANP-BC Unavailable Unavailable Zackery, Radha Sasha ANP-BC Unavailable Unavailable Zackery, Radha Sasha ANP-BC Unavailable Unavailable Zackery, Radha Sasha ANP-BC Unavailable Unavailable Zackery, Radha Sasha ANP-BC Unavailable Unavailable Zackery, Radha Sasha ANP-BC Unavailable Unavailable Zackery, Radha Sasha ANP-BC Unavailable Unavailable Zackery, Radha Sasha ANP-BC Unavailable Unavailable Zackery, Radha Sasha ANP-BC Unavailable Unavailable Zackery, Radha Sasha ANP-BC Unavailable Unavailable Zackery, Radha Sasha ANP-BC Unavailable Unavailable Zackery, Radha Sasha ANP-BC Unavailable Unavailable Zackery, Radha Sasha ANP-BC Unavailable Unavailable Zackery, Radha Sasha ANP-BC Unavailable Unavailable Zackery, Radha Sasha ANP-BC Unavailable Unavailable Zackery, Radha Sasha ANP-BC Unavailable Unavailable Zackery, Radha Sasha ANP-BC Unavailable Unavailable Zackery, Radha Sasha ANP-BC Unavailable Unavailable Zackery, Radha Sasha ANP-BC Unavailable Unavailable Zackery, Radha Sasha ANP-BC Unavailable Unavailable Zackery, Radha Sasha ANP-BC Unavailable Unavailable Zackery, Radha Sasha ANP-BC Unavailable Unavailable Zackery, Radha Sasha ANP-BC Unavailable Unavailable Zackery, Radha Sasha ANP-BC Unavailable Unavailable Zackery, Radha Sasha ANP-BC Unavailable Unavailable Zackery, Radha Sasha ANP-BC Unavailable Unavailable Zackery, Radha Sasha ANP-BC Unavailable Unavailable Zackery, Radha Sasha ANP-BC Unavailable Unavailable Zackery, Radha Sasha ANP-BC Unavailable Unavailable Zackery, Radha Sasha ANP-BC Unavailable Unavailable Zackery, Radha Sasha ANP-BC Unavailable Unavailable Re-disclosure Warning The records that you are about to access may contain information from federally-assisted alcohol or drug abuse programs. If such information is present, then the following federally mandated warning applies: This information has been disclosed to you from records protected by federal confidentiality rules (42 CFR part 2). The federal rules prohibit you from making any further disclosure of this information unless further disclosure is expressly permitted by the written consent of the person to whom it pertains or as otherwise permitted by 42 CFR part 2. A general authorization for the release of medical or other information is NOT sufficient for this purpose. The Federal rules restrict any use of the information to criminally investigate or prosecute any alcohol or drug abuse patient.The records that you are about to access may contain highly sensitive health information, the redisclosure of which is protected by Article 27-F of the [facility] Public Health law. If you continue you may have access to information: Regarding HIV / AIDS; Provided by facilities licensed or operated by the [facility] Office of Mental Health; or Provided by the [facility] Office for People With Developmental Disabilities. If such information is present, then the following [facility] mandated warning applies: This information has been disclosed to you from confidential records which are protected by state law. State law prohibits you from making any further disclosure of this information without the specific written consent of the person to whom it pertains, or as otherwise permitted by law. Any unauthorized further disclosure in violation of state law may result in a fine or residential sentence or both. A general authorization for the release of medical or other information is NOT sufficient authorization for further disc losure. Family History Family Member Name Family Member Gender Family Member Status Date o f Status Description Data Source(s) Unknown Unknown Problem [facility] ([facility], ) Unknown Unknown Problem [facility] ([facility]) maternal grandmother Encounters Encounter Providers Location Date Indications Data Source(s ) Outpatient Att[facility]: [facility] 12/21 09:40:00 AM EDT [facility] Outpatient Attender: Sasha JANSEN 12/21 09:35:00 AM EDT - 01/06/2020 09:35:00 AM EDT [facility] Outpatient Attender: CYDNEY PEDROZA MD Main Office 11/05/2019 08:30:00 AM EST [facility] ([facility] Outpatient Attender: Sasha JANSEN 06/2019 02:15:00 PM EST - 09/30/2019 02:15:00 PM EST [facility] Outpatient Attender: Sasha JANSEN 08/23 10:37:00 AM EST - 09/02/2019 10:37:00 AM [facility] Medications Medication Brand Name Start Date Product Form Dose Route Admi nistrative Instructions Pharmacy Instructions Status Indications Reaction Description Data Source(s) Famotidine 20 MG Oral Tablet Famotidine 04/28/2020 12:00:00 AM EDT ORAL active [facility] ([facility], ) Flonase Allergy Relief Flonase Allergy Relief 11/05/2019 12:00:[address] active [facility] ([facility]) cetirizine hydrochloride 10 MG Oral Tablet Cetirizine HCL 09/30/2019 12:00:00 AM EST active [facility] ([facility]) doxycycline hyclate 100 MG Oral Capsule Doxycycline Hyclate 09/02/2019 12:00:00 AM EST ORAL completed [facility] ([facility]) Insurance Providers Payer name Policy type / Coverage type Policy ID Covered republican ID Covered republican's relationship to hendricks Policy Hendricks Plan Information [facility] [id number] [employer] C[employer] O [id number] S [id number] MVP COMMERCIAL HM [id number] MVP COMMERCIAL HM UNAVAILABLE 01 KIARA VAILABLE [employer] [id number] S [id number] [employer] CARE [id number] SP [id number] [employer] C[employer] [id number] SP [id number] MVP Medicaid Health Maintenance Organization (HMO) [id number] Self [id number] MVP Health Maintenance Organization (HMO) [id number] Family Dependent [id number] MVP Medicaid Health Maintenance Organization (HMO) [id number] Self [id number] MVP Health Maintenance Organization (HMO) [id number] Family Dependent [id number] MVP Medicaid Health Maintenance Organization (HMO) [id number] Self [id number] MVP Health Maintenance Organization (HMO) [id number] Family Dependent [id number] MVP Medicaid Health Maintenance Organization (HMO) [id number] Self [id number] MVP Health Maintenance Organization (HMO) [id number] Family Dependent [id number] MVP Medicaid Health Maintenance Organization (HMO) [id number] Self [id number] MVP Health Maintenance Organization (HMO) [id number] Family Dependent [id number] MVP Medicaid Health Maintenance Organization (HMO) [id number] Self [id number] MVP Health Maintenance Organization (HMO) [id number] Family Dependent [id number] MVP Medicaid Health Maintenance Organization (HMO) [id number] Self [id number] Cigna/Conn Gen/MVP Commercial [id number] Self [id number] MVP HEALTH CARE O [id number] S [id number] [employer] HE[employer] CARE [id number] SP [id number] MVP Commercial [id number] Self [id number] MVP Commercial [id number] Self [id number] Cigna/Conn Gen/MVP Medigap Part B Self MVP Health Maintenance Organization (HMO) Fa bertha Dependent MVP Medicaid Health Maintenance Organization (HMO) Self SELF PAY ONLY UNAVAILABLE SP UNAV AILABLE MVP MCDHMO [id number] SP [id number] MVP MCDHMO [id number] SP [id number] MEDICAID [id number] SP [id number] [facility] [id number] SP [id number] [facility] [id number] SP [id number] [facility] [id number] [facility] [id number] [facility] O [id number] S [id number] SELF PAY UNAVAILABLE UNAVAILA BLE [facility] PHY [id number] SP [id number] MEDICAID -O/P [id number] Problems, Conditions, and Diagnoses Code Display Name Description Problem Type Effective Dates Data Source(s) 27574146 Allergic asthma without status asthmatic us Allergic asthma without status asthmaticus Problem 04/28/2020 12:00:00 AM EDT [facility] ([facility], ) [id number] Allergic rhinitis due to animals Allergic rhinit is due to animals Problem 11/05/2019 12:00:00 AM EST [facility] ([facility]) Note: 4+ positive reaction to cat dande r and dog dander on intradermal test. [id number] Allergic rhinitis due to pollen Allergic rhiniti s due to pollen Problem 11/05/2019 12:00:00 AM EST [facility] ([facility]) Note: 3+ positive reaction to tree mix # 1 (birch, oak, maple) on intradermal test. [id number] Allergic rhinitis due to house dust mite Allergic rhinitis due to house dust mite Problem 11/05/2019 12:00:00 AM EST [facility] ([facility]) Note: 4++ reaction to dust mites on intr adermal test. [id number] Mild persistent asthma Mild persistent asthma Problem 11/05/2019 12:00:00 AM EST [facility] ([facility] ) Surgeries/Procedures Procedure Description Date Indications Data Source(s) Admin Patient Focused Health Risk Assessment Instrument 01/06/2020 12:00:00 AM EDT [facility] ([facility]) PERCUTANEOUS TESTS W/ALLERGENIC EXTRACTS 11/05/2019 12 :00:00 AM EST [facility] ([facility]) INTRACUTANEOUS TESTS W/ALLERGENIC EXTRACTS 11/05/2019 12:00:00 AM EST [facility] ([facility]) Results ID Date Data Source [id number] 04/24/2020 09:30:00 AM EDT [facility]) Name Value Range Interpretation Code Description Data Debbie rce(s) Supporting Document(s) Laboratory test finding (navigational concept) Laboratory test result [facility] ([facility], ) Erythrocyte sedimentation rate by Westergren method 8 mm/hr 0-20 Normal (applies to non-numeric results) [facility] ([facility]) C reactive protein [Mass/volume] in Serum or Plasma by High sensitivity method Laboratory test result 0.00-0.30 Normal (applies to non-numeric results) [facility] ([facility]) <content>note:<nlbl:demographic_changed> </content>
<content></content> ID Date Data Source [id number] [facility] Name Value Range Interpretation Code Description Data Debbie rce(s) Supporting Document(s) Ast/Sgot 15 U/L 7-37 Normal (applies to non-numeric resul ts) [facility] ([facility]) Alkaline Phosphatase 68 U/L 45-117 Normal (applies to non-num fabio results) [facility] ([facility]) Alt/SGPT 16 U/L 12-78 Normal (applies to non-numeric resul ts) [facility] ([facility]) Bilirubin,Direct 0.1 mg/dL 0.0-0.2 Normal (applies to non-numeric results) [facility] ([facility]) Bilirubin,Total 0.7 mg/dL 0.2-1.0 Normal (applies to non-numeric results) [facility] ([facility]) Albumin 3.8 GM/DL 3.2-5.2 Normal (applies to non-numeric resul ts) [facility] Total Protein 7.2 GM/DL 6.4-8.2 Normal (applies to non-numeric re sults) [facility]) Albumin/Globulin Ratio 1.1 1.2-2.2 Below low normal [facility] ([facility]) ID Date Data Source [id number] 04/24/2020 09:30:00 AM EDT [facility] ([facility]) Name Value Range Interpretation Code Description Data Debbie rce(s) Supporting Document(s) White Blood Count 6.5 10 4.0-10.0 Normal (applies to non-numeri c results) [facility] Hemoglobin 13.7 g/dL 12.0-15.5 Normal (applies to non-numeric resul ts) [facility]) Red Blood Count 4.52 10 4.00-5.40 Normal (applies to non-numeric results) [facility]) Hematocrit 41.4 % 36.0-47.0 Normal (applies to non-numeric resul ts) [facility]) Mean Corpuscular Volume 91.6 fl 80.0-96.0 Normal ( applies to non-numeric results) [facility] ([facility]) Mean Corpuscular Hemoglobin 30.3 pg 27.0-33.0 Norm al (applies to non-numeric results) [facility] ([facility]) Mean Corpuscular HGB Conc 33.1 g/dL 32.0-36.5 Normal (applies to non-numeric results) [facility] ([facility]) Red Cell Distribution Width 12.8 % 11.5-14.5 Norm al (applies to non-numeric results) [facility] ([facility]) Platelet Count, Automated 290 10 150-450 Normal (applies to non-numeric results) [facility]) Lymph % 31.9 % 24.0-44.0 Normal (applies to non-numeric resul ts) [facility]) Neutrophils % 57.0 % 36.0-66.0 Normal (applies to non-numeric re sults) [facility]) [place] % 6.6 % 0.0-5.0 Above high normal [facility] ([facility]) Eos % 3.7 % 0.0-3.0 Above high normal [facility] ([facility]) Baso % 0.5 % 0.0-1.0 Normal (applies to non-numeric resul ts) [facility] ([facility]) Immature Granulocyte % 0.3 % 0-3.0 Normal (applies to non-n umeric results) [facility] ([facility]) Nucleated Red Blood Cell % 0.0 % 0-0 Normal (applies to n on-numeric results) [facility] ([facility]) Neutrophils # 3.7 10 1.5-8.5 Normal (applies to non-numeric re sults) [facility] ([facility]) Eos # 0.2 10 0.0-0.5 Normal (applies to non-numeric resul ts) [facility] ([facility]) [place] # 0.4 10 0.0-0.8 Normal (applies to non-numeric resul ts) [facility] ([facility]) Lymph # 2.1 10 1.5-5.0 Normal (applies to non-numeric resul ts) [facility] ([facility]) Baso # 0.0 10 0.0-0.2 Normal (applies to non-numeric resul ts) [facility] ([facility]) Procedure Vital Signs ID Date Data Source UNK Name Value Range Interpretation Code Description Data Source(s) Body weight 83.462 kg 83.462 kg [facility] ([facility]) Body mass index (BMI) [Ratio] 28.0 kg/m2 28.0 k g/m2 [facility] ([facility]) Body weight 184.00 [lb_av] 184.00 [lb_av] [facility] Body height 68 [in_i] 68 [in_i] [facility] ([facility]) 5'8" Diastolic blood pressure 66 mm[Hg] 66 mm[Hg] [facility] ([facility]) Systolic blood pressure 122 mm[Hg] 122 mm[facility]Hg] [facility] Body surface area 1.95 m2 1.95 m2 [facility] ([facility]) Body mass index (BMI) [Ratio] 29.4 kg/m2 29.4 k g/m2 [facility] ([facility]) Body height 66.5 [in_i] 66.5 [in_i] [facility] ([facility]) 5'6.50" Body weight 84.029 kg 84.029 kg [facility] ([facility]) Body weight 185.25 [lb_av] 185.25 [lb_av] [facility] ([facility]) Oxygen saturation in Arterial blood by Pulse oximetry 98 % 98 % [facility] ([facility]) Respiratory rate 18 /min 18 /min [facility] ( [facility]) Body temperature 98.1 [degF] 98.1 [degF] [facility] ([facility]) Heart rate 82 /min 82 /min [facility] ([facility]) Diastolic blood pressure 62 mm[Hg] 62 mm[Hg] [facility] ([facility]) Systolic blood pressure 110 mm[Hg] 110 mm[Hg] M [facility] ([facility]) Body mass index (BMI) [Ratio] 30.5 kg/m2 30.5 k g/m2 [facility] ([facility]) Diastolic blood pressure 76 mm[Hg] 76 mm[Hg] [facility] ([facility]) Systolic blood pressure 118 mm[Hg] 118 mm[Hg] M [facility] ([facility]) Respiratory rate 16 /min 16 /min [facility] ( [facility]) Heart rate 59 /min 59 /min [facility] Body height 65.5 [in_i] 65.5 [in_i] [facility] 5'5.50" Body weight 186.00 [lb_av] 186.00 [lb_av] [facility] ([facility]) Body surface area 1.94 m2 1.94 m2 [facility] ([facility]) Body mass index (BMI) [Ratio] 29.2 kg/m2 29.2 k g/m2 [facility] ([facility]) Body height 66.5 [in_i] 66.5 [in_i] [facility] ([facility]) 5'6.50" Body weight 83.179 kg 83.179 kg [facility] ([facility]) Body weight 183.38 [lb_av] 183.38 [lb_av] [facility] T ([facility]) Oxygen saturation in Arterial blood by Pulse oximetry 99 % 99 % [facility] ([facility]) Respiratory rate 18 /min 18 /min [facility] ( [facility]) Body temperature 98.2 [degF] 98.2 [degF] [facility] ([facility]) Heart rate 88 /min 88 /min [facility] ([facility]) Diastolic blood pressure 62 mm[Hg] 62 mm[Hg] [facility] ([facility]) Systolic blood pressure 118 mm[Hg] 118 mm[Hg] M EDENT ([facility])
--- OUTSIDE RECORDS SUMMARY | 2020-11-05 00:39 | CCD ---
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 If you continue you may have access to information: Regarding HIV / AIDS; Provided by facilities licensed or operated by the [facility] Office of Mental Health; or Provided by the [facility] Office for People With Developmental Disabilities. If such information is present, then the following [facility] mandated warning applies: This information has [...] Family Practice 12/21 09:40:00 AM EDT [facility] Outpatient Attender: Sasha JANSEN 12/21 09:35:00 AM EDT - 01/06/2020 09:35:00 AM EDT [facility] Outpatient Attender: CYDNEY PEDROZA MD Main Office 11/05/2019 08:30:00 AM EST [facility] Outpatient Attender: Sasha JANSEN 06/2019 02:15:00 PM EST - 09/30/2019 02:15:00 PM EST [facility] Outpatient Attender: Sasha JANSEN 08/23 10:37:00 AM EST - 09/02/2019 10:37:00 AM [facility] Medications Medication Brand Name Start Date Product Form Dose Route Admi nistrative Instructions Pharmacy Instructions Status Indications Reaction Description Data Source(s) Famotidine 20 MG Oral Tablet Famotidine 04/28/2020 12:00:00 AM EDT ORAL active [facility] ([facility], ) Flonase Allergy Relief Flonase Allergy Relief 11/05/2019 12:00:[address] active [facility]) cetirizine hydrochloride 10 MG Oral Tablet Cetirizine HCL 09/30/2019 12:00:00 AM EST active [facility] ([facility]) doxycycline hyclate 100 MG Oral Capsule Doxycycline Hyclate 09/02/2019 12:00:00 AM EST ORAL completed [facility] ([facility]) Insurance Providers Payer name Policy type / Coverage type Policy ID Covered constitution party ID Covered constitution party's relationship to hendricks Policy Hendricks Plan Information [facility] [id number] 82 [id number] MVP HE[employer] CARE O [id number] S [id number] MVP COMMERCIAL HM [id number] 18 [id number] MVP COMMERCIAL HM UNAVAILABLE 01 [place] VAILABLE [employer] HEALTHCARE [id number] S [id number] [employer] HE[employer] CARE [id number] SP [id number] MVP HEALTH CARE [id number] SP [id number] MVP Medicaid Health Maintenance Organization (HMO) [id number] Self [id number] MVP Health Maintenance Organization (HMO) [id number] Family Dependent [id number] MVP Medicaid Health Maintenance Organization (HMO) [id number] Self [id number] MVP Health Maintenance Organization (HMO) [id number] Family Dependent [id number] MVP Medicaid Health Maintenance Organization (HMO) [id number] Self [id number] MVP Health Maintenance Organization (HMO) [id number] Family Dependent [id number] MVP Medicaid Health Maintenance Organization (HMO) [id number] Self [id number] MVP Health Maintenance Organization (HMO) [id number] Family Dependent [id number] MVP Medicaid Health Maintenance Organization (HMO) [id number] Self [id number] MVP Health Maintenance Organization (HMO) [id number] Family Dependent [id number] MVP Medicaid Health Maintenance Organization (HMO) [id number] Self [id number] MVP Health Maintenance Organization (HMO) [id number] Family Dependent [id number] MVP Medicaid Health Maintenance Organization (HMO) [id number] Self [id number] Cigna/Conn Gen/MVP Commercial [id number] Self [id number] MVP HEALTH CARE O [id number] S [id number] MVP HEALTH CARE [id number] SP [id number] MVP Commercial [id number] Self [id number] MVP Commercial [id number] Self [id number] Cign[employer]/Conn Gen/MVP Medigap Part B Self MVP Health Maintenance Organization (HMO) Fa bertha Dependent MVP Medicaid Health Maintenance Organization (HMO) Self SELF PAY ONLY UNAVAILABLE SP UNAV AILABLE MVP MCDHMO [id number] SP [id number] MVP MCDHMO [id number] SP [id number] MEDICAID [id number] SP [id number] [facility] [id number] SP [id number] [facility] [id number] SP [id number] [facility] [id number] [facility] [id number] [facility] O [id number] S [id number] SELF PAY UNAVAILABLE UNAVAILA BLE [facility] PHY [id number] SP [id number] MEDICAID -O/P [id number] Problems, Conditions, and Diagnoses Code Display Name Description Problem Type Effective Dates Data Source(s) 75562736 Allergic asthma without status asthmatic us Allergic asthma without status asthmaticus Problem 04/28/2020 12:00:00 AM EDT [facility] ([facility], ) [id number] Allergic rhinitis due to animals Allergic rhinit is due to animals Problem 11/05/2019 12:00:00 AM EST [facility] ([facility]) Note: 4+ positive reaction to cat dande r and dog dander on intradermal test. [id number] Allergic rhinitis due to pollen Allergic rhiniti s due to pollen Problem 11/05/2019 12:00:00 AM EST [facility] ([facility]) Note: 3+ positive reaction to tree mix # 1 (birch, oak, maple) on intradermal test. [id number] Allergic rhinitis due to house dust mite Allergic rhinitis due to house dust mite Problem 11/05/2019 12:00:00 AM EST [facility] ([facility]) Note: 4++ reaction to dust mites on intr adermal test. [id number] Mild persistent asthma Mild persistent asthma Problem 11/05/2019 12:00:00 AM EST [facility] ([facility] ) Surgeries/Procedures Procedure Description Date Indications Data Source(s) Admin Patient Focused Health Risk Assessment Instrument 01/06/2020 12:00:00 AM EDT [facility] ([facility]) PERCUTANEOUS TESTS W/ALLERGENIC EXTRACTS 11/05/2019 12 :00:00 AM EST [facility] ([facility]) INTRACUTANEOUS TESTS W/ALLERGENIC EXTRACTS 11/05/2019 12:00:00 AM EST [facility] ([facility]) Results ID Date Data Source [id number] 04/24/2020 09:30:00 AM EDT [facility] Name Value Range Interpretation Code Description Data Debbie rce(s) Supporting Document(s) Laboratory test finding (navigational concept) Laboratory test result [facility] ) Erythrocyte sedimentation rate by Westergren method 8 mm/hr 0-20 Normal (applies to non-numeric results) [facility] ([facility]) C reactive protein [Mass/volume] in Serum or Plasma by High sensitivity method Laboratory test result 0.00-0.30 Normal (applies to non-numeric results) [facility] ([facility]) <content>note:<nlbl:[email or web address]_changed> </content>
<content></content> ID Date Data Source [id number] [facility] Name Value Range Interpretation Code Description Data Debbie rce(s) Supporting Document(s) Ast/Sgot 15 U/L 7-37 Normal (applies to non-numeric resul ts) [facility]) Alkaline Phosphatase 68 U/L 45-117 Normal (applies to non-num fabio results) [facility] ([facility]) Alt/SGPT 16 U/L 12-78 Normal (applies to non-numeric resul ts) [facility]) Bilirubin,Direct 0.1 mg/dL 0.0-0.2 Normal (applies to non-numeric results) [facility]) Bilirubin,Total 0.7 mg/dL 0.2-1.0 Normal (applies to non-numeric results) [facility]) Albumin 3.8 GM/DL 3.2-5.2 Normal (applies to non-numeric resul ts) [facility] Total Protein 7.2 GM/DL 6.4-8.2 Normal (applies to non-numeric re sults) [facility]) Albumin/Globulin Ratio 1.1 1.2-2.2 Below low normal [facility] ([facility]) ID Date Data Source [id number] 04/24/2020 09:30:00 AM EDT [facility] ([facility]) Name Value Range Interpretation Code Description Data Debbie rce(s) Supporting Document(s) White Blood Count 6.5 10 4.0-10.0 Normal (applies to non-numeri c results) [facility] Hemoglobin 13.7 g/dL 12.0-15.5 Normal (applies to non-numeric resul ts) [facility]) Red Blood Count 4.52 10 4.00-5.40 Normal (applies to non-numeric results) [facility]) Hematocrit 41.4 % 36.0-47.0 Normal (applies to non-numeric resul ts) [facility]) Mean Corpuscular Volume 91.6 fl 80.0-96.0 Normal ( applies to non-numeric results) [facility] ([facility]) Mean Corpuscular Hemoglobin 30.3 pg 27.0-33.0 Norm al (applies to non-numeric results) [facility] ([facility]) Mean Corpuscular HGB Conc 33.1 g/dL 32.0-36.5 Normal (applies to non-numeric results) [facility] ([facility]) Red Cell Distribution Width 12.8 % 11.5-14.5 Norm al (applies to non-numeric results) [facility] ([facility]) Platelet Count, Automated 290 10 150-450 Normal (applies to non-numeric results) [facility]) Lymph % 31.9 % 24.0-44.0 Normal (applies to non-numeric resul ts) [facility]) Neutrophils % 57.0 % 36.0-66.0 Normal (applies to non-numeric re sults) [facility]) Finney % 6.6 % 0.0-5.0 Above high normal [facility] ([facility]) Eos % 3.7 % 0.0-3.0 Above high normal [facility] ([facility]) Baso % 0.5 % 0.0-1.0 Normal (applies to non-numeric resul ts) [facility] ([facility]) Immature Granulocyte % 0.3 % 0-3.0 Normal (applies to non-n umeric results) [facility] ([facility]) Nucleated Red Blood Cell % 0.0 % 0-0 Normal (applies to n on-numeric results) [facility] ([facility]) Neutrophils # 3.7 10 1.5-8.5 Normal (applies to non-numeric re sults) [facility] ([facility]) Eos # 0.2 10 0.0-0.5 Normal (applies to non-numeric resul ts) [facility] Finney # 0.4 10 0.0-0.8 Normal (applies to non-numeric resul ts) [facility] ([facility]) Lymph # 2.1 10 1.5-5.0 Normal (applies to non-numeric resul ts) [facility] Baso # 0.0 10 0.0-0.2 Normal (applies to non-numeric resul ts) [facility] Procedure Vital Signs ID Date Data Source UNK Name Value Range Interpretation Code Description Data Source(s) Body weight 83.462 kg 83.462 kg [facility] ([facility]) Body mass index (BMI) [Ratio] 28.0 kg/m2 28.0 k g/m2 [facility] ([facility]) Body weight 184.00 [lb_av] 184.00 [lb_av] [facility] Body height 68 [in_i] 68 [in_i] [facility] ([facility]) 5'8" Diastolic blood pressure 66 mm[Hg] 66 mm[Hg] [facility] ([facility]) Systolic blood pressure 122 mm[Hg] 122 mm[Hg] [facility] Body surface area 1.95 m2 1.95 m2 [facility] ([facility]) Body mass index (BMI) [Ratio] 29.4 kg/m2 29.4 k g/m2 [facility] ([facility]) Body height 66.5 [in_i] 66.5 [in_i] [facility] ([facility]) 5'6.50" Body weight 84.029 kg 84.029 kg [facility] ([facility]) Body weight 185.25 [lb_av] 185.25 [lb_av] [facility] T ([facility]) Oxygen saturation in Arterial blood by Pulse oximetry 98 % 98 % [facility] ([facility]) Respiratory rate 18 /min 18 /min [facility] ( [facility]) Body temperature 98.1 [degF] 98.1 [degF] [facility] ([facility]) Heart rate 82 /min 82 /min [facility] ([facility]) Diastolic blood pressure 62 mm[Hg] 62 mm[Hg] [facility] ([facility]) Systolic blood pressure 110 mm[Hg] 110 mm[Hg] M [facility] ([facility]) Body mass index (BMI) [Ratio] 30.5 [...] surface area 1.94 m2 1.94 m2 [facility] ([facility]) Body mass index (BMI) [Ratio] 29.2 kg/m2 29.2 k g/m2 [facility] ([facility]) Body height 66.5 [in_i] 66.5 [in_i] [facility] ([facility]) 5'6.50" Body weight 83.179 kg 83.179 kg [facility] ([facility]) Body weight 183.38 [lb_av] 183.38 [lb_av] [facility] ([facility]) Oxygen saturation in Arterial blood by Pulse oximetry 99 % 99 % [facility] ([facility]) Respiratory rate 18 /min 18 /min [facility] ( [facility]) Body temperature 98.2 [degF] 98.2 [degF] [facility] ([facility]) Heart rate 88 /min 88 /min [facility] ([facility]) Diastolic blood pressure 62 mm[Hg] 62 mm[Hg] [facility] ([facility]) Systolic blood pressure 118 mm[Hg] 118 mm[Hg] M [facility] ([facility])
[2020-11-05 02:12] VITALS: BP 132/74
[2020-11-05] MEDS ORDERED: IBUPROFEN 800 MG TAB PO ONE (02:15)
[2020-11-05] MEDS ORDERED: AUGMENTIN 875 MG TAB PO ONE (02:15)
== END 2020-11-05 02:15 | disposition home or self-care (01) ==
LOC: M ED 23:53
DX: K08.89 Other specified disorders of teeth and supporting structures (principal); F17.200 Nicotine dependence, unspecified, uncomplicated

== ENCOUNTER 2020-12-07 13:30 | Outpatient (CLI) | payer OTHER ==
[~2020-12-07] VITALS: Ht 170.2 cm; Wt 81.4 kg
[2020-12-07 13:30] VITALS: BP 112/67
[2020-12-07] MEDS ORDERED: VEDOLIZUMAB 300 MG in NS 250 ML IV ONE (14:00)
[2020-12-07 14:55] VITALS: BP 112/70
== END 2020-12-07 14:45 | disposition home or self-care (01) ==
LOC: M INFU 13:30
PROVIDERS: ATTEND Internal Medicine Gastroenterology
DX: K50.90 Crohn's disease, unspecified, without complications (principal)
CPT/HCPCS: 96365; J3380

== ENCOUNTER → 2021-02-01 | Outpatient (CLI) | payer OTHER ==
[2021-02-01 15:07] LABS: BASO % 0.7 % (0.0-1.0); EOS # 0.3 10^3/uL (0.0-0.5); EOS % 4.2 % (0.0-3.0); HEMATOCRIT 42.3 % (36.0-47.0); HEMOGLOBIN 13.9 g/dl (12.0-15.5); LYMPH # 2.7 10^3/uL (1.5-5.0); LYMPH % 45.7 % (24.0-44.0); MEAN CORPUSCULAR HEMOGLOBIN 30.3 pg (27.0-33.0); MEAN CORPUSCULAR HGB CONC 32.9 g/dl (32.0-36.5); MEAN CORPUSCULAR VOLUME 92.4 fl (80.0-96.0); MONO # 0.5 10^3/uL (0.0-0.8); MONO % 7.8 % (2.0-8.0); NEUTROPHILS # 2.5 10^3/uL (1.5-8.5); NEUTROPHILS % 41.4 % (36.0-66.0); PLATELET COUNT, AUTOMATED 312 10^3/uL (150-450); RED BLOOD COUNT 4.58 10^6/uL (4.00-5.40); WHITE BLOOD COUNT 5.9 10^3/uL (4.0-10.0)
[2021-02-01 15:38] LABS: C REACTIVE PROTEIN QUANTITATIV < 0.30 MG/DL (0.00-0.30); IRON (FE) 77 UG/DL (50-170); PERCENT SATURATION 29.5 % (13.2-45.0); TOTAL IRON BINDING CAPACITY 261 UG/DL (250-450)
[2021-02-01 15:49] LABS: ERYTHROCYTE SEDIMENTATION RATE 7 mm/hr (0-20)
== END ==
LOC: M LAB 14:15
PROVIDERS: ATTEND Internal Medicine Gastroenterology
DX: K50.10 Crohn's disease of large intestine without complications (principal)

== ENCOUNTER 2021-02-09 13:27 | Outpatient (CLI) | payer OTHER ==
[~2021-02-09] VITALS: Ht 170.2 cm; Wt 81.4 kg
[2021-02-09] MEDS ORDERED: VEDOLIZUMAB 300 MG in NS 250 ML IV ONE (13:30)
[2021-02-09 13:34] VITALS: BP 128/76
[2021-02-09 14:41] VITALS: BP 126/78
== END 2021-02-09 14:45 | disposition home or self-care (01) ==
LOC: M INFU 13:27
PROVIDERS: ATTEND Internal Medicine Gastroenterology
DX: K50.90 Crohn's disease, unspecified, without complications (principal)
CPT/HCPCS: 96365; J3380

== ENCOUNTER 2021-04-06 13:35 | Outpatient (CLI) | payer OTHER ==
[~2021-04-06] VITALS: Ht 170.2 cm; Wt 81.4 kg
[~2021-04-06 13:35] MED LIST changes: +VEDOLIZUMAB 300 MG in NS 250 ML IV ONE
[2021-04-06 14:02] VITALS: BP 122/70
[2021-04-06 15:01] VITALS: BP 123/79
== END 2021-04-06 15:02 | disposition home or self-care (01) ==
LOC: M INFU 13:35
PROVIDERS: ATTEND Internal Medicine Gastroenterology
DX: K50.90 Crohn's disease, unspecified, without complications (principal)
CPT/HCPCS: 96365; J3380

== ENCOUNTER 2021-06-07 13:11 | Outpatient (CLI) | payer OTHER ==
[~2021-06-07] VITALS: Ht 170.2 cm; Wt 81.2 kg
[2021-06-07 13:15] VITALS: BP 129/74
[2021-06-07 14:32] VITALS: BP 110/74
== END 2021-06-07 14:30 | disposition home or self-care (01) ==
LOC: M INFU 13:11
PROVIDERS: ATTEND Internal Medicine Gastroenterology
DX: K50.90 Crohn's disease, unspecified, without complications (principal)
CPT/HCPCS: 96365; J3380

== ENCOUNTER 2021-08-02 12:55 | Outpatient (CLI) | payer OTHER ==
[~2021-08-02] VITALS: Ht 226.1 cm; Wt 81.2 kg
[~2021-08-02 12:55] MED LIST changes: -VEDOLIZUMAB 300 MG in NS 250 ML IV ONE
[2021-08-02] MEDS ORDERED: VEDOLIZUMAB 300 MG in NS 250 ML IV ONE (13:00)
[2021-08-02 13:05] VITALS: BP 138/73
[2021-08-02 14:10] VITALS: BP 116/75
== END 2021-08-02 14:10 | disposition home or self-care (01) ==
LOC: M INFU 12:55
PROVIDERS: ATTEND Internal Medicine Gastroenterology
DX: K50.90 Crohn's disease, unspecified, without complications (principal)
CPT/HCPCS: 96365; J3380

== ENCOUNTER 2021-11-05 07:18 | Day surgery (SDC) | payer OTHER ==
[~2021-11-05] VITALS: Ht 167.6 cm; Wt 76.2 kg
[~2021-11-05 07:18] MED LIST changes: +NS 1,000 ML IV ONE
[2021-11-05 10:02] VITALS: BP 123/83
== END 2021-11-05 10:05 | disposition home or self-care (01) ==
LOC: M OPP 07:18
PROVIDERS: ATTEND Internal Medicine Gastroenterology
DX: K50.00 Crohn's disease of small intestine without complications (principal); K64.8 Other hemorrhoids; Z79.899 Other long term (current) drug therapy; Z80.1 Family history of malignant neoplasm of trachea, bronchus and lung; F17.210 Nicotine dependence, cigarettes, uncomplicated

== ENCOUNTER 2021-11-24 13:34 | Outpatient (CLI) | payer OTHER ==
[~2021-11-24] VITALS: Ht 170.2 cm; Wt 81.2 kg
[~2021-11-24 13:34] MED LIST changes: -NS 1,000 ML IV ONE; +VEDOLIZUMAB 300 MG in NS 250 ML IV ONE
[2021-11-24 13:51] VITALS: BP 126/79
[2021-11-24 15:00] VITALS: BP 138/85
== END 2021-11-24 15:00 | disposition home or self-care (01) ==
LOC: M INFU 13:34
PROVIDERS: ATTEND Internal Medicine Gastroenterology
DX: K50.90 Crohn's disease, unspecified, without complications (principal)
CPT/HCPCS: 96365; J3380

== ENCOUNTER → 2025-02-18 | Outpatient (CLI) | payer BC, OTHER ==
[~2025-02-18] MED LIST changes: -AZAT50TA2 PO; +AZAT50TA37 PO; -VEDOLIZUMAB 300 MG in NS 250 ML IV ONE
[2025-02-18 19:00] LABS: BASO # 0.1 10^3/uL (0.0-0.2); BASO % 0.7 % (0.0-1.0); EOS # 0.3 10^3/uL (0.0-0.5); EOS % 3.9 % (0.0-3.0); HEMATOCRIT 42.9 % (36.0-47.0); HEMOGLOBIN 14.2 g/dl (12.0-15.5); LYMPH # 2.9 10^3/uL (1.5-5.0); LYMPH % 35.3 % (24.0-44.0); MEAN CORPUSCULAR HEMOGLOBIN 29.7 pg (27.0-33.0); MEAN CORPUSCULAR HGB CONC 33.1 g/dl (32.0-36.5); MEAN CORPUSCULAR VOLUME 89.7 fl (80.0-96.0); MONO # 0.6 10^3/uL (0.0-0.8); NEUTROPHILS # 4.3 10^3/uL (1.5-8.5); NEUTROPHILS % 52.9 % (36.0-66.0); PLATELET COUNT, AUTOMATED 344 10^3/uL (150-450); RED BLOOD COUNT 4.78 10^6/uL (4.00-5.40); WHITE BLOOD COUNT 8.2 10^3/uL (4.0-10.0)
[2025-02-18 19:06] LABS: ERYTHROCYTE SEDIMENTATION RATE 16 mm/hr (0-20)
[2025-02-18 19:29] LABS: ALBUMIN 3.9 G/DL (3.2-5.2); ALKALINE PHOSPHATASE 70 U/L (35-104); ALT/SGPT 16 U/L (7.0-40); AST/SGOT 13 U/L (<34); BILIRUBIN,TOTAL 0.3 MG/DL (0.3-1.2); BLOOD UREA NITROGEN 12 MG/DL (9-23); C REACTIVE PROTEIN QUANTITATIV < 0.50 MG/DL (<1.0); CALCIUM LEVEL 10.1 MG/DL (8.5-10.1); CARBON DIOXIDE LEVEL 27 MMOL/L (20-31); CHLORIDE LEVEL 104 MMOL/L (98-107); CREATININE FOR GFR 0.84 MG/DL (0.55-1.30); GLOMERULAR FILTRATION RATE > 90.0 (>60); GLUCOSE, FASTING 96 MG/DL (60-100); POTASSIUM SERUM 4.2 MMOL/L (3.5-5.1); SODIUM LEVEL 141 MMOL/L (136-145); TOTAL PROTEIN 7.1 G/DL (5.7-8.2)
[2025-02-18 19:31] LABS: THYROID STIMULATING HORMONE 1.395 uIU/ML (0.55-4.78)
[2025-02-18 19:34] LABS: COMPLEMENT C3 138.8 MG/DL (84.0-160.0); COMPLEMENT C4 36.4 MG/DL (12-36); RHEUMATOID FACTOR QUANT < 3.5 IU/ML (<14)
[2025-02-18 19:37] LABS: THYROID PEROXIDASE ANTIBODY 34 U/ML (<60.0)
[2025-02-21 13:07] LABS: THRYOGLOBULIN ANTIBODIES (ATA) < 1 IU/mL (< or = 1); THYROGLOBULIN QUANTITATIVE 11.3 ng/mL (2.8-40.9)
[2025-02-21 13:48] LABS: ANA SCREEN, IFA NEGATIVE (NEGATIVE)
[2025-02-23 12:51] LABS: TRYPTASE 5.1 mcg/L (<11.0)
[2025-02-24 17:41] LABS: TSH RECEPTOR ASSAY < 1.00 IU/L (<=2.00)
== END ==
LOC: M PLALAB 16:00
PROVIDERS: ATTEND Nurse Practitioner Family
DX: L50.1 Idiopathic urticaria (principal)